=== PATIENT | male | born 1975 | race Caucasian/White ===

== ENCOUNTER 2020-06-30 14:28 | Emergency (ER) | payer SELFPAY ==
[2020-06-30 14:35] VITALS: BP 176/91; PULSE 86; RESP 16; TEMP 37.2; O2SAT 96; BMI 27.2
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
--- NOTE | 2020-06-30 14:40 | XR_ITS ---
PROCEDURE: XR SHOULDER RT MIN 2V CLINICAL INDICATION: pain COMPARISON: No exams were available for comparison FINDINGS: No fracture or dislocation. No lytic or blastic change. There is normal mineralization. The joint spaces are well-preserved. No significant degenerative/arthritic changes. No erosive changes evident. Other findings:None. IMPRESSION: No acute findings. Dictated by: Wei Marcus MD 06/30/2020 16:27 Wei Marcus MD in [place] 06/30/2020 16:27
--- NOTE | 2020-06-30 14:55 | PC.NURSE ---
rad notified of xray order
--- NOTE | 2020-06-30 15:02 | PC.NURSE ---
pt to radiology
--- NOTE | 2020-06-30 16:05 | PC.NURSE ---
contacted radiology to request that radiologist read pt xray per ER MD request, spoke with luis
[2020-06-30 16:42] VITALS: BP 139/103; PULSE 77; RESP 18; TEMP 37.2; O2SAT 97
== END 2020-06-30 16:45 | disposition home or self-care (01) ==
PROVIDERS: Emergency Provider Emergency Medicine
DX: S43.411A Sprain of right coracohumeral (ligament), initial encounter (principal); V48.0XXA Car driver injured in noncollision transport accident in nontraffic accident, initial encounter; Y92.488 Other paved roadways as the place of occurrence of the external cause
CPT/HCPCS: 73030; 99283

== ENCOUNTER 2020-12-13 14:43 | Emergency (ER) | payer SELFPAY ==
[2020-12-13 14:50] VITALS: BP 151/95; PULSE 83; RESP 16; TEMP 36.6; O2SAT 98; BMI 25.9
[2020-12-13 15:04] VITALS: BP 147/93; PULSE 87; RESP 14; TEMP 36.6; O2SAT 99; BMI 25.9
--- NOTE | 2020-12-13 15:09 | XR_ITS ---
PROCEDURE: XR CLAVICLE RT CLINICAL INDICATION: pain COMPARISON: No exams were available for comparison FINDINGS: No fracture or dislocation. No lytic or blastic change. There is normal mineralization. The joint spaces are well-preserved. No significant degenerative/arthritic changes. No erosive changes evident. Other findings:None. IMPRESSION: No acute findings. Dictated by: Sophia Becker 12/13/2020 16:05 Sophia Becker in [place] 12/13/2020 16:05
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
[2020-12-13 16:11] VITALS: BP 139/85; PULSE 86; RESP 16; TEMP 36.6
== END 2020-12-13 16:31 | disposition home or self-care (01) ==
PROVIDERS: Emergency Provider Nurse Practitioner
DX: S46.911A Strain of unspecified muscle, fascia and tendon at shoulder and upper arm level, right arm, initial encounter (principal); X50.0XXA Overexertion from strenuous movement or load, initial encounter
CPT/HCPCS: 73000; 99202; G0463

== ENCOUNTER 2021-10-11 14:18 | Emergency (ER) | payer SELFPAY ==
[2021-10-11 14:20] VITALS: BP 141/93; PULSE 81; RESP 18; TEMP 37; O2SAT 97; BMI 30.6
--- NOTE | 2021-10-11 15:08 | HMH.EDUTC ---
[facility] [place] Disposition Clinical Impression: Gastroenteritis Disposition: Home, Self-Care Condition on Discharge: Good Instructions: Viral Gastroenteritis, DI for Viral Gastroenteritis -- Adult, Ondansetron, DI for COVID-19 (Suspected or Confirmed ), Preventing the Spread of Coronavirus Discharge Instructions Additional Instructions: Drink plenty of fluids. Take tylenol or ibuprofen for pain or fever. Take the medications as directed. Follow up with your regular doctor. GO TO THE ER FOR ANY WORSENING SYMPTOMS Quarantine until you know the results of your covid-19 test. Notify your school or workplace of your results and follow their instructions regarding return to work/school. Prescriptions: Ondansetron [Zofran 4mg ODT] 4 mg PO Q8HP PRN #20 tab PRN Reason: Nausea Transmission Status: Received by [id number] Referrals: Provider,Referral, [Primary Care Provider] - Forms: Work/School Release Time of Disposition: 15:26 Medical Decision Making - Medical Records Medical records reviewed: No: I reviewed the patient's medical records. - Joseluis Inquiry Pt receiving controlled substance: No Vital Signs: 10/11/21 14:20 10/11/21 15:10 Temperature 98.6 F 98.6 F Temperature Source Oral Pulse Rate 81 Pulse Rate [Right Brachial] 81 Respiratory Rate 18 18 Blood Pressure 141/93 H Blood Pressure [Right Arm] 141/93 H Blood Pressure Mean [Right Arm] 109 Blood Pressure Source [Right Arm] Automatic Cuff Blood Pressure Position [Right Arm] Sitting 02 Sat by Pulse Oximetry 97 Oxygen Delivery Method Room Air - Lab Data Lab results reviewed: Yes: I reviewed the patient's lab results. [facility] [place] HPI - General Stated complaint: vomiting,diarrhea Time Seen by Provider: 10/11/21 15:10 Mode of Arrival: Ambulatory Source of Information: Patient Limitations: No Limitations Description of Symptoms (Recalled from Triage Doc. by RN): PATIENT C/O VOMITING AND DIARRHEA X 2 DAYS HEENT Symptoms (Recalled from RN notes): No Resp Symptoms (Recalled from RN notes): No Skin Symptoms (Recalled from RN notes): No MS Symptoms (Recalled from RN notes): No Functional Status (Recalled from RN notes): WNL - History of Present Illness Provider Complaint: He c/o abdominal cramping, diarrhea, and n/v for the past 2 days. - Related Data Previous Rx's Medication Instructions Recorded Ondansetron [Zofran 4mg ODT] 4 mg PO Q8HP PRN #20 tab 10/11/21 Allergies Allergy/AdvReac Type Severity Reaction Status Date / Time No Known Allergies Allergy Verified 10/11/21 14:33 - Worker's Comp Is this a Worker's Comp case?: No H History - Hepatitis A Screen Drug use history?: No High risk sexual behaviors?: No History of sexually transmitted infection?: No Currently employed?: No Childcare worker?: No Do you have indoor plumbing?: Yes Do you have electricity?: Yes Attestation statement:: This patient has been screened for Hepatitis A risk factors. I have reviewed the patient's past medical history: Yes Medical History: Denies:: Diabetes Mellitus Type 1, Diabetes Mellitus Type 2 - Social History Alcohol Intake: current Alcohol Intake Frequency:: holidays/special occasions only Occupational Status: other ROS Obtained: Yes All systems reviewed & no additional complaints - Constitutional Constitutional: Reports as per HPI - Eyes Eyes: Denies eye discharge - ENT Ears, Nose, Mouth, and Throat: Denies dizziness, Denies otalgia, Denies sore throat - Cardiovascular Cardiovascular: Denies chest pain - Respiratory Respiratory: Denies chest congestion, Denies cough, Denies dyspnea, Denies stridor, Denies wheezing - Gastrointestinal Gastrointestingal: Reports: as per HPI Physical Exam - General General appearance: alert, in no apparent distress - Head Head exam: atraumatic, normocephalic, normal inspection - Eye Eye exam: Present: normal appearance, PERRL, EOMI -
[2021-10-11 15:10] VITALS: BP 141/93; PULSE 81; RESP 18; TEMP 37; O2SAT 97
== END 2021-10-11 15:32 | disposition home or self-care (01) ==
PROVIDERS: Emergency Provider Nurse Practitioner Family
DX: K52.9 Noninfective gastroenteritis and colitis, unspecified (principal); Z20.822 Contact with and (suspected) exposure to COVID-19
CPT/HCPCS: 99202; C9803; G0463; U0003; U0005

== ENCOUNTER 2022-01-04 10:36 | Emergency (ER) | payer SELFPAY ==
[2022-01-04 11:26] VITALS: BP 122/83; PULSE 76; RESP 16; TEMP 37; O2SAT 100; BMI 29.1
--- NOTE | 2022-01-04 11:52 | HMH.EDUTC ---
[facility] [place] Impression: Nausea vomiting and diarrhea Disposition: Home, Self-Care Condition on Discharge: Good Instructions: Diarrhea, Nausea and Vomiting-Adult, Ondansetron Additional Instructions: Drink extra fluids with and between meals. If you have difficulty drinking, try very small amounts of water or suck on ice chips. ? Avoid fruit juices, as these do not replace minerals and can actually increase diarrhea. ? Children and adults can use sports drinks to replenish electrolytes. Younger children and infants should use products formulated for children, like oral rehydration solutions. ? Eat food in small amounts and let your stomach recover. ? Get lots of rest. You may feel tired or weak. ? No greasy or fried foods for the next 24-48 hours BRAT diet Bananas Rice Apples and [employer] [place] [address] [place] ? Make sure to drink plenty of liquids ? Return if needed ? Straight to ER if any life threatening symptoms ? Zofran as prescribed ? Follow up with family doctor in the next 48-72 hours if no improvement or any worsening of symptoms Prescriptions: Ondansetron [Zofran 4mg ODT] 4 mg PO TIDP PRN #12 tab PRN Reason: Vomiting Transmission Status: Pending to [id number] Referrals: Provider,Referral, [Primary Care Provider] - Forms: Work/School Release Time of Disposition: 11:58 Medical Decision Making - Joseluis Inquiry Pt receiving controlled substance: No Joseluis was queried for this patient: No Vital Signs: 01/04/22 11:26 Temperature 98.6 F Temperature Source Oral Pulse Rate [Right Radial] 76 Respiratory Rate 16 Blood Pressure [Right Arm] 122/83 Blood Pressure Mean [Right Arm] 96 Blood Pressure Source [Right Arm] Automatic Cuff Blood Pressure Position [Right Arm] Sitting 02 Sat by Pulse Oximetry 100 Oxygen Delivery Method Room Air [facility] [place] - General Stated complaint: vomiting, diarrhea Time Seen by Provider: 01/04/22 11:53 Mode of Arrival: Ambulatory Source of Information: Patient Limitations: No Limitations Description of Symptoms (Recalled from Triage Doc. by RN): C/O vomiting and diarrhea since Sunday night HEENT Symptoms (Recalled from RN notes): No Resp Symptoms (Recalled from RN notes): No Skin Symptoms (Recalled from RN notes): No MS Symptoms (Recalled from RN notes): No Functional Status (Recalled from RN notes): n/a - History of Present Illness Provider Complaint: Patient states that he started feeling bad on Sunday after he eat some smoked chicken States that he is not sure if he has a stomach bug or may have had a little food poisoning and hasnt been able to work so his job told him he had to come in and get checked - Related Data Previous Rx's Medication Instructions Recorded Ondansetron [Zofran 4mg ODT] 4 mg PO Q8HP PRN #20 tab 10/11/21 Ondansetron [Zofran 4mg ODT] 4 mg PO TIDP PRN #12 tab 01/04/22 Allergies Allergy/AdvReac Type Severity Reaction Status Date / Time No Known Allergies Allergy Verified 10/11/21 14:33 - Worker's Comp Is this a Worker's Comp case?: No [facility] History - Hepatitis A Screen Drug use history?: No High risk sexual behaviors?: No History of sexually transmitted infection?: No Currently employed?: No Childcare worker?: No Do you have indoor plumbing?: Yes Do you have electricity?: Yes Attestation statement:: This patient has been screened for Hepatitis A risk factors. I have reviewed the patient's past medical history: Yes Medical History: Denies:: Diabetes Mellitus Type 1, Diabetes Mellitus Type 2 - Social History Alcohol Intake: current Alcohol Intake Frequency:: holidays/special occasions only Occupational Status: other ROS Obtained: Yes All systems reviewed & no additional complaints, Yes Systems reviewed as appropriate & no additional complaints - Constitutional Constitutional: Reports system reviewed and no additional complaints, except as docu, Denies body ache, Denies chills, Denies fever(s) - ENT Ears
[2022-01-04 12:04] VITALS: BP 122/83; PULSE 76; RESP 16; TEMP 37; O2SAT 100
== END 2022-01-04 12:09 | disposition home or self-care (01) ==
PROVIDERS: Emergency Provider Nurse Practitioner Family
DX: R11.2 Nausea with vomiting, unspecified (principal); R19.7 Diarrhea, unspecified
CPT/HCPCS: 99212; G0463

== ENCOUNTER 2024-11-12 14:26 | Emergency (ER) | payer SELFPAY ==
[2024-11-12 14:30] VITALS: BP 176/106; PULSE 89; RESP 18; TEMP 36.7; O2SAT 98; BMI 28.8
--- NOTE | 2024-11-12 14:56 | HMH.EDGENADL ---
Discharge Plan Disposition Chief Complaint: PAIN Prescriptions Prescriptions: No Action ondansetron 4 MG tablet,disintegrating 4 mg PO Q8HP PRN (Reason: Nausea) Qty: 20 0RF ondansetron 4 MG tablet,disintegrating 4 mg PO TIDP PRN (Reason: Vomiting) Qty: 12 0RF Referrals Follow up/Referrals: Provider,Elodia, [Primary Care Provider] - See instructions Print Language Print Language: [place] Discharge ED Provider: Ben Leyva General Adult HPI <Sreedhar Colin MD - Last Filed: 11/12/24 15:45> General Chief complaint: PAIN Stated complaint: Right shoulder pain down to elbow Time Seen by Provider: 11/12/24 14:57 Related Data Previous Rx's ?Medication ?Instructions ?Recorded ondansetron 4 mg disintegrating 4 mg PO Q8HP PRN Nausea #20 tabs 10/11/21 tablet ondansetron 4 mg disintegrating 4 mg PO TIDP PRN Vomiting #12 tabs 01/04/22 tablet Allergies Allergy/AdvReac Type Severity Reaction Status Date / Time No Known Allergies Allergy Verified 10/11/21 14:33 <Ben Leyva MD - Last Filed: > General Mode of Arrival: Ambulatory Source of Information: Patient Limitations: No Limitations Description of Symptoms (Recalled from ER Triage Doc. by RN): PT REPORTS RIGHT SHOULDER PAIN THAT RADIATES DOWN RIGHT ARM. PT STATES HE WAS LIFTING A TRANSMISSION LAST NIGHT PFSH <Sreedhar Colin MD - Last Filed: 11/12/24 15:45> PFS Social History Smoking Status: Current every day smoker alcohol intake: current alcohol intake frequency: holidays/special occasions only current occupational status: other Travel in the last 8 weeks: None Have you lived/traveled outside [place] in past 30 days?: No Contact w/someone who lives/traveled outside [place] past 30 days?: No Exposure to someone with infectious disease in past 14 days?: No Do you have a fever (greater than 100.4 F or 38 C)?: No Have you tested positive for COVID-19: No Exposed to someone with COVID-19 in past 14 days?: No Do you have a sore throat?: No Do you have a cough?: No Do you have any weakness?: No Do you have any diarrhea?: No Are you experiencing any unusual bleeding?: No Do you have any muscle aches/pain?: No Do you have any abdominal pain?: No Are you experiencing loss of taste or smell?: No <Ben Leyva MD - Last Filed: > [facility] Disclaimer: The information contained in this section may have been updated after the patient was seen, as this information can be updated by other users. Other Medical History Have you received the Flu Vaccine for this season: No Have you received the Pneumonia Vaccine: No Medical Decision Making <Sreedhar Colin MD - Last Filed: 11/12/24 15:45> Vital Signs: 11/12/24 14:30 Temperature 98.0 F Temperature Source Oral Pulse Rate [Radial] 89 Respiratory Rate 18 Blood Pressure [Left Arm] 176/106 H Blood Pressure Mean [Left Arm] 129 Blood Pressure Source [Left Arm] Automatic Cuff Blood Pressure Position [Left Arm] Sitting 02 Sat by Pulse Oximetry 98 Oxygen Delivery Method Room Air Orders (Tests/Meds): ORDERS Category Date Time Status XR shoulder RT min 2V Stat Exams 11/12/24 15:03 Completed HIV Combo Stat Lab 11/12/24 14:33 Ordered Hepatitis C Ab Qual. W/ RFX Stat Lab 11/12/24 14:33 Ordered ECG Data Tracing #1: Independently interpreted by me rate of 79, rhythm is regular, axis is leftward deviated, no ST elevation in anatomical contiguous leads, QTc 375 <Ben Leyva MD - Last Filed: > Medical Records Screening: Per USPSTF and CDC recommendations, given the prevalence of disease in our region, it is our hospital?s policy to screen for HIV and viral Hepatitis for all patients aged 18 and over and those with ongoing risk factors. Vital Signs: 11/12/24 14:30 Temperature 98.0 F Temperature Source Oral Pulse Rate [Radial] 89 Respiratory Rate 18 Blood Pressure [Left Arm] 176/106 H Blood Pressure Mean [Left Arm] 129 Blood Pressure Source [Left Arm] Automatic Cuff Blood Pressure Position [Left Arm] Sitting 02 Sat by Pulse Oximetry 98 Oxygen Delivery Method Room Air Orders (Tests/Meds): ORDERS Category Date Time Status XR shoulder RT min 2V Stat Exams 11/12/24 15:03 Completed HIV Combo Stat Lab 11/12/24 14:33 Ordered Hepatitis C Ab Qual. W/ RFX Stat Lab 11/12/24 14:33 Ordered
--- NOTE | 2024-11-12 15:03 | XR_ITS ---
FINAL REPORT CLINICAL HISTORY: Shoulder pain/injury FINDINGS: RIGHT SHOULDER Three views demonstrate no acute fracture or dislocation. The visualized joint spaces are normally aligned. The soft tissues are unremarkable. IMPRESSION: No acute process. Reviewed, Interpreted and Dictated by Florecita Michaud MD Transcribed by Chasity Black Authenticated and [facility]
--- NOTE | 2024-11-12 15:04 | HMH.EDGENADL ---
Discharge Plan Disposition Patient Disposition: Home, Self-Care Condition: Good Prescriptions Prescriptions: No Action ondansetron 4 MG tablet,disintegrating 4 mg PO Q8HP PRN (Reason: Nausea) Qty: 20 0RF ondansetron 4 MG tablet,disintegrating 4 mg PO TIDP PRN (Reason: Vomiting) Qty: 12 0RF Referrals Follow up/Referrals: Ben Mukherjee DO [Staff Physician] - See instructions (Right shoulder pain after lifting accident) Provider,Referral, MD [Primary Care Provider] - See instructions Activity Restrictions/Add. Instructions Additional Instructions/Restrictions: Please utilize shoulder sling for comfort, I recommend rest elevation Tylenol ibuprofen and other anti-inflammatory type medications as needed for pain. Return to the emerged part with any worsening signs or symptoms. Movement as tolerated. Follow-up with orthopedic doctor and PCP. Clinical Impressions Clinical Impression: Right shoulder strain Qualifiers: Encounter type: initial encounter Qualified Code(s): S46.911A - Strain of unspecified muscle, fascia and tendon at shoulder and upper arm level, right arm, initial encounter Stand Alone Forms Stand Alone Forms: Work/School Release Instructions Patient Instructions: Shoulder Tendinopathy, DI for Shoulder Pain Print Language Print Language: Marshallese Discharge ED Provider: Ben Leyva General Adult HPI <ABDIEL Perez - Last Filed: 11/12/24 15:49> General Chief complaint: PAIN Stated complaint: Right shoulder pain down to elbow Time Seen by Provider: 11/12/24 14:57 Mode of Arrival: Ambulatory Source of Information: Patient Limitations: No Limitations Description of Symptoms (Recalled from ER Triage Doc. by RN): PT REPORTS RIGHT SHOULDER PAIN THAT RADIATES DOWN RIGHT ARM. PT STATES HE WAS LIFTING A TRANSMISSION LAST NIGHT History of Present Illness HPI narrative: 49-year-old male presents emergency department with right shoulder pain, patient does endorse trauma/injury last night, patient was helping a friend move a transmission , he did hear a pop , and had some shoulder pain after the incident, the shoulder pain is located in the right shoulder, with some radiation down into the elbow, patient denies any upper or lower extremity weakness, denies any numbness or tingling, denies any neck pain, or any radicular symptomatology, denies urinary bladder or bowel dysfunction, denies fever chills cough congestion shortness of breath, denies any chest pain, abdominal pain nausea vomiting constipation diarrhea no urinary type symptomatology, patient has no other real relevant past medical history, takes no other medications at home, he is a patient of smoker, denies any alcohol or drug use, no other substance use, distress vitals unremarkable. Of note, patient has been taking ibuprofen and Tylenol utilizes last night, with some relief of symptomatology. Onset (ago): day(s) Related Data Previous Rx's ?Medication ?Instructions ?Recorded ondansetron 4 mg disintegrating 4 mg PO Q8HP PRN Nausea #20 tabs 10/11/21 tablet ondansetron 4 mg disintegrating 4 mg PO TIDP PRN Vomiting #12 tabs 01/04/22 tablet Allergies Allergy/AdvReac Type Severity Reaction Status Date / Time No Known Allergies Allergy Verified 10/11/21 14:33 [facility] <ABDIEL Perez - Last Filed: 11/12/24 15:49> [facility] Disclaimer: The information contained in this section may have been updated after the patient was seen, as this information can be updated by other users. Social History Smoking Status: Current every day smoker alcohol intake: current alcohol intake frequency: holidays/special occasions only current occupational status: other Travel in the last 8 weeks: None Have you lived/traveled outside US in past 30 days?: No Contact w/someone who lives/traveled outside US past 30 days?: No Exposure to someone with infectious disease in past 14 days?: No Do you have a fever (greater than 100.4 F or 38 C)?: No Have you tested positive for COVID-19: No Exposed to someone with COVID-19 in past 14 days?: No Do you have a sore throat?: No Do you have a cough?: No Do you have any weakness?: No Do you have any diarrhea?: No Are you experiencing any unusual bleeding?: No Do you have any muscle aches/pain?: No Do you have any abdominal pain?: No Are you experiencing loss of taste or smell?: No Other Medical History Have you received the Flu Vaccine for this season: No Have you received the Pneumonia Vaccine: No <ABDIEL Perez - Last Filed: 11/12/24 15:49> ROS Obtained: Yes All systems reviewed & no additional complaints except as documented Physical Exam <ABDIEL Perez - Last Filed: 11/12/24 15:49> General General appearance: alert and in no apparent distress Head Head exam: atraumatic and normocephalic Eye Eye exam: Present PERRL and EOMI ENT ENT exam: Present mucous membranes moist Neck Neck exam: Present normal inspection Chest Chest inspection: Present normal inspection and symmetric chest wall rise Respiratory Respiratory exam: Present normal lung sounds bilaterally; Absent respiratory distress, wheezes or stridor Cardiovascular Cardiovascular exam: Present regular rate and normal rhythm Abdominal Exam Abdominal exam: Present soft; Absent tenderness Extremities Exam Extremities exam: Present normal inspection, tenderness and other (Patient has some difficulty with shoulder movement abduction and raising above the head, he is otherwise neurovascular intact, no numbness tingling, has good strength, negative empty can sign, but slightly positive Neer's test.); Absent full ROM, edema or joint swelling Neurological Exam Neurological exam: Present alert and oriented X3 Psychiatric Psychiatric exam: Present normal affect Skin Skin exam: Present warm and dry Medical Decision Making <ABDIEL Perez - Last Filed: 11/12/24 15:49> Medical Records Medical records reviewed: Yes I reviewed the patient's medical records. Screening: Per USPSTF and CDC recommendations, given the prevalence of disease in our region, it is our hospital?s policy to screen for HIV and viral Hepatitis for all patients aged 18 and over and those with ongoing risk factors. Joseluis Inquiry Pt receiving controlled substance: No Joseluis was queried for this patient: No Vital Signs: 11/12/24 14:30 11/12/24 15:55 Temperature 98.0 F 97.9 F Temperature Source Oral Oral Pulse Rate 80 Pulse Rate [Radial] 89 Respiratory Rate 18 18 Blood Pressure 166/102 H Blood Pressure [Left Arm] 176/106 H Blood Pressure Mean [Left Arm] 129 Blood Pressure Source Automatic Cuff Blood Pressure Source [Left Arm] Automatic Cuff Blood Pressure Position Sitting Blood Pressure Position [Left Arm] Sitting 02 Sat by Pulse Oximetry 98 Oxygen Delivery Method Room Air Room Air Lab Data Lab results reviewed: Yes I reviewed the patient's lab results. Orders (Tests/Meds): ORDERS Category Date Time Status XR shoulder RT min 2V Stat Exams 11/12/24 15:03 Completed Medical Decision Narrative: 49-year-old male presents to the emergency department with shoulder pain on the right, differential diagnose include but not limited to, anterior shoulder dislocation, shoulder fracture, shoulder sprain/strain, acute shoulder impingement. Discussed patient case with attending physician Will obtain x-ray of the right shoulder and obtain EKG for further evaluation as characterization. I reviewed the patient's right shoulder x-ray along with the corresponding radiologic report no acute process. The patient's EKG with the attending physician. No ST segment elevations or acute ischemic changes are apparent, see separate EKG interpretation for full details. I discussed the results with the patient at the bedside, patient is in agreement with current discharge plan/treatment plan: Place patient in sling for comfort, recommend ibuprofen Tylenol and rest for acute shoulder impingement, patient will be discharged home to self-care, follow-up with orthopedic provider as directed. Strict ED return precautions given. Patient voiced understanding. <Ben Leyva MD - Last Filed: 11/13/24 15:04> Vital Signs: 11/12/24 14:30 11/12/24 15:55 Temperature 98.0 F 97.9 F Temperature Source Oral Oral Pulse Rate 80 Pulse Rate [Radial] 89 Respiratory Rate 18 18 Blood Pressure 166/102 H Blood Pressure [Left Arm] 176/106 H Blood Pressure Mean [Left Arm] 129 Blood Pressure Source Automatic Cuff Blood Pressure Source [Left Arm] Automatic Cuff Blood Pressure Position Sitting Blood Pressure Position [Left Arm] Sitting 02 Sat by Pulse Oximetry 98 Oxygen Delivery Method Room Air Room Air Orders (Tests/Meds): ORDERS Category Date Time Status XR shoulder RT min 2V Stat Exams 11/12/24 15:03 Completed Medical Decision Narrative: 49-year-old male presents to the emergency department with shoulder pain on the right, differential diagnose include but not limited to, anterior shoulder dislocation, shoulder fracture, shoulder sprain/strain, acute shoulder impingement. Discussed patient case with attending physician Will obtain x-ray of the right shoulder and obtain EKG for further evaluation as characterization. I reviewed the patient's right shoulder x-ray along with the corresponding radiologic report no acute process. The patient's EKG with the attending physician. No ST segment elevations or acute ischemic changes are apparent, see separate EKG interpretation for full details. I discussed the results with the patient at the bedside, patient is in agreement with current discharge plan/treatment plan: Place patient in sling for comfort, recommend ibuprofen Tylenol and rest for acute shoulder impingement, patient will be discharged home to self-care, follow-up with orthopedic provider as directed. Strict ED return precautions given. Patient voiced understanding. I was consulted by the ROLDAN, and we discussed the complexity of the problems being addressed. I approved the treatment and management plan for this patient's care in the Emergency Department, thus performing a substantive portion of the medical decision making. Ben Leyva MD Critical Care <ABDIEL Perez - Last Filed: 11/12/24 15:49> Critical Care Time Critical Care Time: No
--- NOTE | 2024-11-12 15:34 | ECG_ITS ---
APPROVED REPORT Exam: Resting ECG HR:79 bpm ECG Measurements Heart Rate 79 AXES IN 160 P 65 QRSd 98 QRS -46 QT 341 T 64 QTc 375 Conclusion SINUS RHYTHM INCOMPLETE RIGHT BUNDLE BRANCH BLOCK [90+ ms QRS DURATION, TERMINAL R IN V1/V2, 40+ ms S IN I/aVL/V4/V5/V6] LEFT ANTERIOR FASCICULAR BLOCK [QRS AXIS <= -45, QR IN I, RS IN II] MINIMAL VOLTAGE CRITERIA FOR LVH, CONSIDER NORMAL VARIANT [MEETS CRITERIA IN ONE OF: R(aVL), S(V1), R(V5), R(V5/V6)+S(V1)] NONSPECIFIC T-WAVE ABNORMALITY ABNORMAL ECG No STEMI Electronically signed by : DAVID ROBERTSON, 11/13/2024 07:07:06
--- NOTE | 2024-11-12 15:42 | PC.NURSE ---
rounded on the pt. the pt voices that he does not need anything at this time. call light is within reach of the pt.
[2024-11-12 15:55] VITALS: BP 166/102; PULSE 80; RESP 18; TEMP 36.6; O2SAT 99
== END 2024-11-12 15:55 | disposition home or self-care (01) ==
PROVIDERS: Emergency Provider Emergency Medicine
DX: S46.911A Strain of unspecified muscle, fascia and tendon at shoulder and upper arm level, right arm, initial encounter (principal); X50.0XXA Overexertion from strenuous movement or load, initial encounter
CPT/HCPCS: 73030; 93005; 99283

== ENCOUNTER 2025-07-09 21:11 | Emergency (ER) | payer SELFPAY ==
[2025-07-09 21:17] VITALS: BP 157/91; PULSE 87; RESP 16; TEMP 37.3; O2SAT 94
--- OUTSIDE RECORDS SUMMARY | 2025-07-09 21:18 | XMS_ITS | Clinical Summary ---
Author Organization [employer] [facility] Address [address] [place] [address] Phone Care Team Providers Care Propeller Engineer Name Role Phone Unavailable Unavailable Conditions or Problems No information available. Medications No information available. Medications Administered No information available. Allergies, Adverse Reactions, Alerts No information available. Results No information available. Plan of Care No information available. Procedures No information available. Vital Signs No information available. Immunizations No information available. Advance Directives No information available.
--- OUTSIDE RECORDS SUMMARY | 2025-07-09 21:19 | XMS_ITS | Clinical Summary ---
Author Organization [facility] Address [address] [place] [address] Phone Care Team Providers Care Systems Engineer Name Role Phone Myra Salazar MD Primary Care Provider [phone] Allergies No known active allergies Medications montelukast (SINGULAIR) 10 mg Oral TabletIndications :RAD (reactive airway disease), unspecified asthma severity, uncomplicated Take 1 Tab by mouth nightly. 90 Tab 7 Active Additional Information Patient not taking.Reported on 04/13/2025 pantoprazole (PROTONIX) 40 mg Oral Tablet, Delayed Release (E.C.)Indications :Gastroesophageal reflux disease without esophagitis Take 1 Tab by mouth daily. 30 Tab 2 7 Active Additional Information Patient not taking.Reported on 04/13/2025 albuterol (PROVENTIL HFA;VENTOLIN HFA) 90 mcg/actuation Inhl HFA Aerosol InhalerIndication s:RAD (reactive airway disease), unspecified asthma severity, uncomplicated Inhale 2 Puffs into the lungs every 4 hours as needed for Wheezing. 1 g 8 Active Additional Information Patient not taking.Reason: Therapy Completed, Reported on 04/13/2025 methocarbamol (ROBAXIN-750) 750 mg Oral TabletIndications :Chronic midline low back pain with sciatica, sciatica laterality unspecified Take 1 Tab by mouth 4 times daily as needed. 30 Tab 8 Active Additional Information Patient not taking.Reported on 04/13/2025 naproxen (NAPROSYN) 500 mg Oral TabletIndications :Chronic midline low back pain with sciatica, sciatica laterality unspecified,Right foot pain Take 1 Tab by mouth 2 times daily (with meals). 100 Tab 8 Active Additional Information Patient not taking.Reported on 04/13/2025 pravastatin (PRAVACHOL) 20 mg Oral TabletIndications :Hyperlipidemia with target LDL less than 130 Take 1 Tab by mouth every evening. 90 Tab 8 Active Additional Information Patient not taking.Reported on 04/13/2025 valsartan (DIOVAN) 80 mg Oral TabletIndications :Essential hypertension Take 1 Tab by mouth daily. 90 Tab 8 Active Additional Information Patient not taking.Reported on 04/13/2025 Active Problems Problem Noted Date Diagnosed Date Obesity, Class I, BMI 30-34.9 04/04/2017 Essential hypertension 05/31/2016 Hyperlipidemia with target LDL less than 130 02/2016 Encounters Date Type Department Care Team Description 04/13/2025 11:36 AM EDT - 04/13/2025 12:04 PM EDT Emergency [facility] [address] [facility] [place] [address] Gagan Michel MD Local reaction to hymenoptera sting (Primary Dx) Discharge Disposition: Home or Self Care from Last 3 Months Immunizations Immunization Administration Dates Next Due Influenza Vaccine Quadrivalent PF 06/04/2017 Tdap 05/01/2016 Medical History Medical History Date Comments Hyperlipidemia with target LDL less than 130 05/23 Essential hypertension 05/31/2016 Family History Medical History Relation Name Comments High Blood Pressure Maternal Aunt High Blood Pressure Maternal Grandfather High Blood Pressure Maternal Uncle High Blood Pressure Paternal Aunt High Blood Pressure Paternal Grandfather Relation Name Status Comments Maternal Aunt Maternal Grandfather Maternal Uncle Paternal Aunt Paternal Grandfather Social History Tobacco Use Types Packs/Day Years Used Date Smoking Tobacco: Never Smokeless Tobacco: Never Tobacco Cessation:Counseling Given: Yes Alcohol Use Standard Drinks/Week Comments Not Currently 0 (1 standard drink = 0.6 oz pur e alcohol) rarely Sex and Gender Information Value Date Recorded Sex Assigned at Not on file Legal Sex Male 9:19 PM EDT Gender Identity Not on file Sexual Orientation Not on file Last Filed Vital Signs Vital Sign Reading Time Taken Comments Blood Pressure 149/101 04/13/2025 11:40 AM EDT Pulse 106 04/13/2025 11:25 AM EDT Temperature 36.6 C (97.9 F) 04/13/2025 11:40 AM EDT Respiratory Rate 20 04/13/2025 11:25 AM EDT Oxygen Saturation 97% 04/13/2025 11:25 AM EDT Inhaled Oxygen Concentration - - Weight 102.1 kg (225 lb) 04/13/2025 11:25 AM EDT Height 188 cm (6' 2 ) 04/13/2025 11:25 AM EDT Body Mass Index 28.89 04/13/2025 11:25 AM EDT Plan of Treatment Health Maintenance Due Date Last Done Comments Hepatitis B Vaccine (1 of 3 - 19+ 3-dose series) 1996 Annual Wellness Exam 06/04/2018 06/04/2017, 05/01/2016 Cologuard 2022 Colon Cancer Screening 2022 Colonoscopy 2022 FIT 2022 Sigmoidoscopy 2022 Virtual Colonography 2022 COVID-19 Vaccine (1 - 2024-2 6 season) 2025 Influenza Vaccine (#1) 2025 7, 06/04/2017, 05/31/2016 (Declined) DTaP/TDaP/Td (2 - Td or Tdap) 05/01/2026 05/01/2016 Meningococcal B Vaccine Aged Out No l onger eligible based on patient's age to complete this topic Pneumococcal Vaccine 0-49 Aged Out No longer eligible based on patient's age to complete this topic Care Teams Systems Engineer Relationship Specialty Start Date End Date Myra Salazar MD [address] [facility] [id number] PCP - General Family Medicine 12/12/18
--- OUTSIDE RECORDS SUMMARY | 2025-07-09 21:19 | XMS_ITS ---
Author Organization Unknown ENCOUNTERS Encounter Performer Location Date Diagnosis Diagnosis Status Emergency [place] [address] [place] [address] [id number] Pre Admit [place] [address] [facility] [place] [address] [id number] Emergency [address] [place] [place] [address] [id number] [place] Pre Admit [address] [place] [place] [address] [id number] Emergency [address] [place] [address] [id number] [place] [facility] [address] [place] [address] [id number] [place] Emergency Joellen Lawler [address] [place] [place] [address] [id number] [place] *Note: Encounters from your own facility or health system may be excluded. Allergies, Adverse Reactions, Alerts Allergen Type Severity Identification Date Medications Name Date Quantity Days Supplied GPI Number
--- NOTE | 2025-07-09 21:27 | PC.NURSE ---
Pt awake alert and oriented skin pink warm and dry Resp full and easy Radial pulses strong and equal Cap refill brisk bilaterally. Speech clear and appropriate
--- NOTE | 2025-07-09 21:42 | ED_ITS ---
Discharge Plan Disposition Patient Disposition: Home, Self-Care Condition: Good Prescriptions Prescriptions: No Action ondansetron 4 MG tablet,disintegrating 4 mg PO Q8HP PRN (Reason: Nausea) Qty: 20 0RF ondansetron 4 MG tablet,disintegrating 4 mg PO TIDP PRN (Reason: Vomiting) Qty: 12 0RF Referrals Follow up/Referrals: Ben Mukherjee DO [Staff Physician, Orthopedics] - See instructions Provider,Referral, MD [Primary Care Provider, Medical] - See instructions Activity Restrictions/Add. Instructions Additional Instructions/Restrictions: Call Dr. Mukherjee's office in the morning, the note that you need to be evaluated for possible carpal tunnel syndrome. Return to the emergency department if you have any spreading numbness that progresses into your other fingers or up your hand or into your forearm. Otherwise take Tylenol Motrin as needed at home return to the emergency department for any acute or worsening symptoms Clinical Impressions Clinical Impression: Paresthesia of finger Stand Alone Forms Stand Alone Forms: Work/School Release Print Language Print Language: Mongolian Discharge ED Provider: Genevieve Case Adult HPI General Chief complaint: PAIN Stated complaint: left hand fingers going numb, and tingling Time Seen by Provider: 07/09/25 21:42 Mode of Arrival: Ambulatory Source of Information: Patient Description of Symptoms (Recalled from ER Triage Doc. by RN): left hand pain no injury History of Present Illness HPI narrative: Patient is a 49-year-old gentleman with no significant past medical history who presents to the emergency department with left hand tingling. Patient states it is worse in his middle finger but it is present in his thumb index finger as well. Patient states that he can feel the fingers but it does feel like paresthesias and tingling. Patient has not had any new associated trauma. States that he previously had a knot in the middle of his hand that has since resolved. Patient denies any associated pain. Patient is right-hand dominant. Denies any motor deficits. Related Data Previous Rx's ?Medication ?Instructions ?Recorded ondansetron 4 mg disintegrating 4 mg PO Q8HP PRN Nause a #20 tabs 10/11/21 tablet ondansetron 4 mg disintegrating 4 mg PO TIDP PRN Vomit ing #12 tabs 01/04/22 tablet Allergies Allergy/AdvReac Type Severity Reaction Status Date / Time No Known Allergies Allergy Verified 10/11/21 14:33 [facility] Disclaimer: The information contained in this section may have been updated after the patient was seen, as this information can be updated by other users. Social History Smoking Status: Current every day smoker alcohol intake: current alcohol intake frequency: holidays/special occasions only current occupational status: other Travel in the last 8 weeks?: None Have you lived/traveled outside [place] in past 30 days?: No Contact w/someone who lives/traveled outside [place] past 30 days?: No Exposure to someone with infectious disease in past 14 days?: No Do you have a fever (greater than 100.4 F or 38 C)?: No Have you tested positive for COVID-19?: No Exposed to someone with COVID-19 in past 14 days?: No Do you have a sore throat?: No Do you have a cough?: No Do you have any weakness?: No Do you have any diarrhea?: No Are you experiencing any unusual bleeding?: No Do you have any muscle aches/pain?: No Do you have any abdominal pain?: No Are you experiencing loss of taste or smell?: No Other Medical History Have you received the Flu Vaccine for this season: No Have you received the Pneumonia Vaccine: No ROS Obtained: Yes All systems reviewed & no additional complaints except as documented and Yes Systems reviewed as appropriate & no additional complaints except as documented Physical Exam General General appearance: alert and in no apparent distress Head Head exam: atraumatic, normocephalic and normal inspection Eye Eye exam: Present normal appearance, PERRL and EOMI; Absent scleral icterus ENT ENT exam: Present normal exam and normal external ear exam Neck Neck exam: Present normal inspection and full ROM Chest Chest inspection: Present normal inspection and symmetric chest wall rise Respiratory Respiratory exam: Present normal lung sounds bilaterally; Absent respiratory distress or wheezes Cardiovascular Cardiovascular exam: Present regular rate, normal rhythm, normal heart sounds and other (2+ radial pulse in the left upper extremity) Abdominal Exam Abdominal exam: Present soft and distention; Absent tenderness, guarding or rebound Extremities Exam Extremities exam: Present normal inspection, full ROM and other (Left hand with full range of motion) Back Exam Back exam: Present normal inspection and full ROM Neurological Exam Neurological exam: Present alert, oriented X3 and other (Left hand, neurovascularly intact, mild distal sensation loss of the middle finger otherwise intact) Psychiatric Psychiatric exam: Present normal affect and normal mood Skin Skin exam: Present warm and dry Medical Decision Making Medical Records Screening: Per USPSTF and CDC recommendations, given the prevalence of disease in our region, it is our hospital?s policy to screen for HIV and viral Hepatitis for all patients aged 18 and over and those with ongoing risk factors. Joseluis Inquiry Pt receiving controlled substance: No Vital Signs: 07/09/25 21:17 07/09/25 23:07 Temperature 99.1 F 98.8 F Temperature Source Oral Oral Pulse Rate 88 Pulse Rate [Right Radial] 87 Respiratory Rate 16 20 Blood Pressure 150/80 H Blood Pressure [Right Arm] 157/91 H Blood Pressure Mean [Right Arm] 113 Blood Pressure Source Automatic Cuff Blood Pressure Source [Right Arm] Automatic Cuff Blood Pressure Position Sitting 02 Sat by Pulse Oximetry 94 L Oxygen Delivery Method Room Air Room Air Lab Data Lab results reviewed: Yes I reviewed the patient's lab results. Orders (Tests/Meds): ED MEDICATIONS Discontinued Medications Generic Name Dose Route Start Last Admin Trade Name Diallo PRN Reason Stop Dose Admin Dexamethasone 10 mg 07/09/25 22:52 07/09/25 23:10 Dexamethasone 4mg Tablet PO 07/09/25 22:53 10 mg ONCE ONE Administration Medical Decision Narrative: Patient is a 49-year-old gentleman with no significant past medical history who presents to the emergency department with concern for tingling and paresthesias of his left fingers. On arrival, patient was hemodynamically stable with unremarkable vital signs. Differential includes but not limited to: carpal tunnel syndrome, arterial injury, venous clot, fracture, amongst others On exam, patient's sensation is intact in his left hand except for at the distal tip of his middle finger. Patient was otherwise had appropriate motor, had no deficits. Patient had a 2+ strong radial pulse therefore low concern for arterial injury. I felt that patient's symptoms may be consistent with carpal tunnel. No associated trauma to suspect fracture or dislocation. Was recommended to immobilize in a thumb spica patient was given a dose of dexamethasone and patient was given orthopedic follow-up. Patient was otherwise discharged home in stable condition. Return precautions were discussed. Critical Care Critical Care Time Critical Care Time: No
[2025-07-09 23:07] VITALS: BP 150/80; PULSE 88; RESP 20; TEMP 37.1; O2SAT 98
[2025-07-09] MEDS: DEXAMETHASONE 4MG TABLET 10 MG PO (23:10)
== END 2025-07-09 23:18 | disposition home or self-care (01) ==
PROVIDERS: Emergency Provider Student in an Organized Health Care Education/Training Program
DX: R20.2 Paresthesia of skin (principal)
CPT/HCPCS: 99282; 99283; J8540